=== PATIENT | female | born 1995 | race Caucasian/White ===

== ENCOUNTER 2017-08-06 14:16 | Emergency (ER) | payer OTHER ==
[2017-08-06 14:19] VITALS: BP 143/83; BMI 26.6
[2017-08-06 15:18] LABS: BILIRUBIN,URINE NEGATIVE (NEGATIVE); BLOOD/HEMOGLOBIN,URINE NEGATIVE (NEGATIVE); GLUCOSE, URINE NEGATIVE (NEGATIVE); KETONES,URINE NEGATIVE (NEGATIVE); LEUKOCYTE ESTERASE ,URINE 1+ (NEGATIVE); NITRITES,URINE NEGATIVE (NEGATIVE); PROTEIN,URINE NEGATIVE (NEGATIVE); UROBILINOGEN,URINE NORMAL (NORMAL)
[2017-08-06 15:40] LABS: APPEARANCE,URINE CLEAR (CLEAR); COLOR,URINE YELLOW (YELLOW)
[2017-08-06 15:43] LABS: RBC,URINE RARE /HPF (NEGATIVE)
[2017-08-06 15:44] LABS: AMORPHOUS SEDIMENT,UR TRACE /HPF (NEGATIVE); BACTERIA,URINE TRACE /HPF (NEGATIVE); MUCUS,URINE MODERATE /HPF (NEGATIVE); SQUAMOUS EPITHELIAL CELL,UR FEW /HPF (NEGATIVE)
[2017-08-06] MEDS ORDERED: TYLENOL 500 MG TAB EXTRA STRENGTH PO STA (15:50)
[2017-08-06] MEDS ORDERED: TYLENOL 500 MG TAB EXTRA STRENGTH PO ONE (15:55)
--- NOTE | 2017-08-06 15:56 | DR.GENAD ---
HPI - PCP Primary Care Physician: JOHN - Complaint/Symptoms Chief Complaint Doctors Comments: patient is complaining of left lower back and left lower abdominal pain for the past three weeks with lower abdominal pain the past 2-3 days getting worst. States she has talked to Dr. Lopez about her back pain but she did not tell her to take anything for he pain. States she has not taken any tylenol or anything because she is afraid to take any medicines. States she is eight weeks and this is her second and she has a boy one year old. She denies hematuria, vaginal bleeding or discharge. States they recently did a sonogram at the doctor's office and they baby was doing fine and they could hear the heart beat at 8 weeks. She denies fever, chills, cold or cough. She denies any recent trauma. Chief Complaint:: PATIENT STATED THAT HER LEFT SIDE AND LOWER BACK HAS BEEN HURTING TODAY ON THE SIDE AND 3 WEEKS ON THE BACK. PATIENT IS A 8 WEEK OB. - Nurses notes reviewed Nurses Notes Review: Yes - Source History Provided: Patient - Mode of Arrival Mode of Arrival: Ambulatory - Timing Onset of Chief Complaint: 08/03/17 Came on: Gradually - Duration Duration: Intermittent How lon Duration: Weeks - Location Location: left lower back pain - Severity Severity: Moderate - Modifying Factors Worsens:: nothing Improves:: nothing PMH - PMH Past Medical History: No Past Surgical History: No - Family History History of Family Medical Conditions: No (UNKNOWN) - Social History Does patient currently use any type of tobacco product: No Have you used tobacco products in the last 12 months: No Type of Tobacco Use: None Does any household member use tobacco: No Alcohol Use: None Do you use any recreational Drugs:: No Lives With: Family Lives Where: Home - infectious screening In the last 2 months have you had wt loss of >10#?: NO Have you had fever, night sweats or hemotysis?: No Have you traveled outside the country in the last 6 months?: No Isolation: Standard ROS - Review of Systems Constitutional: No Symptoms Reported. negative: See HPI, Chills, Diaphoresis, Fever, Malaise, Weakness, Irritable, Fatigue, Loss of Appetite, Other Eyes: No Symptoms Reported ENTM: No Symptoms Reported. negative: See HPI, Ear Pain, Ear Discharge, Pulling on Ears, Hearing Loss, Nose Pain, Nose Discharge, Epistaxis, Nose Congestion, Mouth Pain, Mouth Swelling, Loose Teeth, Drooling, Throat Pain, Throat Swelling, Ear Foreign Body Respiratoy: No Symptoms Reported Cardiovascular: No Symptoms Reported. negative: See HPI, Chest Pain, Edema, Palpitations, Syncope, Cyanosis, Skin Mottling, Other Gastrointestinal/Abdominal: No Symptoms Reported. negative: See HPI, Abdominal Pain, Constipation, Diarrhea, Nausea, Vomiting, Food Intolerance, Other Genitourinary: No Symptoms Reported. negative: See HPI, Discharge, Dysuria, Frequency, Hematuria, Pain, Bleeding, Other Neurological: No Symptoms Reported Musculoskeletal: No Symptoms Reported Integumentary: No Symptoms Reported Hematologic/Lymphatic: No Symptoms Reported Endocrine: No Symptoms Reported Psychiatric: No Symptoms Reported. negative: See HPI, Anxiety, Depression, Hallucinations, Excessive crying, Suicidal, Other PE - Vital Signs Vitals: Temperature 98.7 F Pulse Rate 86 Respiratory Rate 20 Blood Pressure 143/83 O2 Sat by Pulse Oximetry 99 - General Limitations: No Limitations. negative: Language Barrier, Altered Mental Status , Physical Limitation, Other General Appearance: Alert, In No Apparent Distress - Head Head Exam: Normal Inspection, Atraumatic, Normocephalic - Eyes Eye exam: Normal Appearance, PERRL, EOMI. negative: Scleral Icterus, Conjunctival Injection, Nystagmus, Miosis, Mydrasis, Periorbital Swelling, Periorbital Tenderness, Other - ENT ENT Exam: Normal Exam, Normal Oropharynx, Normal External Ear Exam, Mucous Membranes Moist, TM's Normal Bilaterally External Ear Exam: Normal External Inspection TM/Canal Exam: Bilateral Normal Nose Exam: Normal Nose Exam Mouth Exam: Normal Inspection Throat Exam: Normal Inspection - Neck Neck Exam: Normal Inspection, Full ROM, Trachea Midline - Chest Chest Inspection: Normal Inspection, Symmetric Chest Wall Rise - Respiratory Respiratory Exam: Normal Lung Sounds Bilat Respiratory Exam: Bilateral Clear to Auscultation - Cardiovascular Cardiovascular Exam: Regular Rate, Normal Rhythm, Normal Heart Sounds. negative : Bradycardia, Tachycardia, Irregular Rhythm, Systolic Murmur, Diastolic Murmur , Rubs, Gallop, Clicks, JVD, +S1, +S2, +S3, +S4, Other - Abdominal Exam Abdominal Exam: Normal Inspection, Normal Bowel Sounds, Soft. negative: Distention, Tenderness, Guarding, Rebound, Rigidity, Dimnished Bowel Sounds, Hyperactive Bowel Sounds, Hypoactive Bowel Sounds, Organomegaly, Trauma, Incision, Ascites, Mass, Bruit, Pulsatile Mass, Hernia, Other Abdominal Tenderness: negative: RUQ, RLQ, LUQ, LLQ, Epigastrium, Suprapubic, Diffuse, Mild, Moderate, Severe, Other - Extremities Extremities Exam: Normal Inspection, Full ROM, Normal Capillary Refill. negative: Tenderness - Back Back Exam: Normal Inspection, Full ROM, Tenderness (left lower paraspinal tenderness). negative: (R) CVA Tenderness, (L) CVA Tenderness, Muscle Spasm, Paraspinal Tenderness, Vertebral Tenderness, Rashes, (R) Sciatic Notch Tenderness, (L) Sciatic Notch Tendern, (R) Straight Leg Raise, (L) Straight Leg Raise, Other - Neurologic Neurological Exam: Alert, Oriented X3, CN II-XII Intact, Normal Gait, Reflexes Normal - Psychiatric Psychiatric Exam: Normal Affect, Normal Mood - Skin Skin Exam: Warm, Dry, Intact, Normal Color ROR - Labs Reviewed Laboratory Results Reviewed?: Yes (all lab results reviewed and discussed with patient.) Laboratory: Specimen Type Clean catch urine 08/06/17 14:42 Urine Color Yellow (YELLOW) 08/06/17 14:42 Urine Appearance Clear (CLEAR) 08/06/17 14:42 Urine pH 5.0 (5.0 - 8.0) 08/06/17 14:42 Ur Specific [place] 1.015 (1.000-1.030) 08/06/17 14:42 Urine Protein Negative (NEGATIVE) 08/06/17 14:42 Urine Glucose (UA) Negative (NEGATIVE) 08/06/17 14:42 Urine Ketones Negative (NEGATIVE) 08/06/17 14:42 Urine Occult Blood Negative (NEGATIVE) 08/06/17 14:42 Urine Nitrite Negative (NEGATIVE) 08/06/17 14:42 Urine Bilirubin Negative (NEGATIVE) 08/06/17 14:42 Urine Urobilinogen Normal (NORMAL) 08/06/17 14:42 Ur Leukocyte Esterase 1+ (NEGATIVE) 08/06/17 14:42 Urine RBC Rare /HPF (NEGATIVE) 08/06/17 14:42 Urine WBC 0 - 2 /HPF (NEGATIVE) 08/06/17 14:42 Ur Squamous Epith Cells Few /HPF (NEGATIVE) 08/06/17 14:42 Amorphous Sediment Trace /HPF (NEGATIVE) 08/06/17 14:42 Urine Bacteria Trace /HPF (NEGATIVE) 08/06/17 14:42 Urine Mucus Moderate /HPF (NEGATIVE) 08/06/17 14:42 Ur Culture Indicated? No/not indicated 08/06/17 14:42 - Diagnosis Discharge Problem: Low back pain Qualifiers: Chronicity: acute Sciatica presence: without sciatica Lumbar strain Qualifiers: Encounter type: initial encounter Qualified Code(s): S39.012A - Strain of muscle, fascia and tendon of lower back, initial encounter Qualifiers: Weeks of gestation: 8 weeks Qualified Code(s): Z3A.08 - 8 weeks gestation of - Discharge Plan Disposition: 01 HOME, SELF-CARE Condition: Stable - Follow ups/Referrals Follow ups/Referrals: MANDIE LOPEZ [Primary Care Provider] - 3 days - Instructions Instructions: Back Pain, Adult, [id number],
== END 2017-08-06 16:16 | disposition home or self-care (01) ==
LOC: ER 14:16
DX: S39.012A Strain of muscle, fascia and tendon of lower back, initial encounter (principal); M54.5 Low back pain; Z3A.08 8 weeks gestation of pregnancy; Y33.XXXA Other specified events, undetermined intent, initial encounter; Y92.9 Unspecified place or not applicable
CPT/HCPCS: 81001; 99282; 99283

== ENCOUNTER 2019-05-16 06:10 | Inpatient (IN) ==
[2019-05-16] MEDS ORDERED: LR 1000 ML IV 1,000 ML IV ONE (06:35)
[2019-05-16] MEDS ORDERED: D5LR 1L W PITOCIN 10 UNITS/L 10 UNITS/1,000 ML BAG IV ONE (06:35)
[2019-05-16] MEDS ORDERED: D5 1/2 NS 1000 ML 1,000 ML IV ONE (06:36)
[2019-05-16] MEDS: D5 1/2 NS 1000 ML 1,000 ML IV SCH ×2 (06:45→18:40)
[2019-05-16] MEDS ORDERED: BACITRACIN VIAL ONE (06:48)
--- NOTE | 2019-05-16 07:00 | DR.OB ---
OB Quick Note - Assessment/Plan Assessment/Plan: L&D 05/16/19 at 6:50am S-No complaint. O-Afebrile,VSS RZR=180 with good LTV, +accel, no decel. CTX=none CVX=2cm/50%/-1/VTX AROM with clear fluid. IUPC and FSE placed. A-IUP at 39 2/7 weeks for induction Rh- P-Begin pitocin induction Anticipate
[2019-05-16] MEDS ORDERED: D5LR 1L W PITOCIN 10 UNITS/L 10 UNITS/1,000 ML BAG IV PRN (07:14)
[2019-05-16] MEDS ORDERED: REGLAN INJ 10 MG VIAL IVP PRN (07:14)
[2019-05-16] MEDS ORDERED: PHENERGAN INJ 25 MG IM PRN ×2 (07:14→17:08)
[2019-05-16] MEDS ORDERED: PITOCIN IVP ONE (07:14)
[2019-05-16] MEDS ORDERED: MORPHINE SULFATE INJ 2 MG INJ IVP PRN (07:14)
[2019-05-16] MEDS ORDERED: NUBAIN INJ 200 MG VIAL MULTIDOSE IVP PRN (07:14)
[2019-05-16] MEDS ORDERED: AFLURIA II4 or FLUARIX II4 IM ONE (08:02)
[2019-05-16] MEDS ORDERED: NAROPIN EPIDURAL 0.2% + FENTANYL 90MCG 60 ML EPI ONE ×2 (09:16→15:41)
[2019-05-16] MEDS ORDERED: FENTANYL INJ 100 mcg ONE (09:16)
--- NOTE | 2019-05-16 11:38 | DR.OB ---
OB Quick Note - Assessment/Plan Assessment/Plan: L&D 05/16/19 at 11:30am Pitocin=16mu/min. S-No complaint. s/p epidural. O-Afebrile,VSS DUH=978 with good LTV, +accel, no decel. CTX=q 1 1/2 to 3 min., about 35-65mmHg CVX=3cm/50%/-1 A-IUP at 39 2/7 weeks for induction Rh- P-Cont. pitocin induction Anticipate
[2019-05-16] MEDS ORDERED: PITOCIN ONE (12:11)
[2019-05-16] MEDS ORDERED: D5 1/2 NS 1L W PITOCIN 20 UNITS/L 20 UNITS/1,000 ML BAG IV ONE (12:11)
--- NOTE | 2019-05-16 17:07 | DR.OB ---
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 Head delivered over intact perineum. Nose and mouth bulb suctioned. No nuchal cord. Body delivered over intact perineum. Cord clamped x 2 and cut. handed to attendant. Cord sent for gases. Placenta delivered spontaneously / intact / 3 vessel cord. No CVX / vaginal / perineal tears. Viable male , VTX/OA, wt=7'3" and 8/9, stable to NBN. Mother stable to RR. URP=[id number].
[2019-05-16] MEDS ORDERED: MOTRIN TAB 800 MG PO PRN (17:08)
[2019-05-16] MEDS ORDERED: D5 1/2 NS 1000 ML 1,000 ML with PITOCIN 20 UNITS IV SCH ×2 (18:00)
[2019-05-16] MEDS ORDERED: HYPERRHO S/D (or RHOGAM) IM PRN ×2 (18:26→18:46)
[2019-05-16] MEDS ORDERED: MILK OF MAGNESIA PO PRN ×2 (18:26→18:46)
[2019-05-16] MEDS ORDERED: AMBIEN PO PRN ×2 (18:26→18:46)
[2019-05-16] MEDS ORDERED: ADACEL or BOOSTRIX TDaP VACCINE IM ONE (18:26)
[2019-05-16] MEDS ORDERED: DERMOPLAST SPRAY TOP PRN ×2 (18:26→18:46)
[2019-05-16] MEDS ORDERED: ZANTAC PO SCH (21:00)
[2019-05-16] MEDS: ZANTAC PO SCH (21:00)
[2019-05-16] MEDS: MOTRIN TAB 800 MG PO PRN (21:00)
[2019-05-17 05:39] LABS: HEMATOCRIT 30.1 % (36.0-47.0)
[2019-05-17] MEDS ORDERED: HYPERRHO S/D (or RHOGAM) IM ONE (07:21)
[2019-05-17] MEDS: MOTRIN TAB 800 MG PO PRN ×2 (07:25→21:00)
[2019-05-17] MEDS: PRENATAL PLUS PO SCH (08:00)
[2019-05-17] MEDS: ZANTAC PO SCH ×2 (08:00→21:00)
[2019-05-17] MEDS ORDERED: PRENATAL PLUS PO SCH (09:00)
[2019-05-18] MEDS: PRENATAL PLUS PO SCH (09:14)
[2019-05-18] MEDS: ZANTAC PO SCH (09:14)
[2019-05-18 09:16] VITALS: BP 105/69
== END 2019-05-18 11:45 | disposition home or self-care (01) | DRG 807 ==
LOC: LD 06:10 → MED/SURG 18:30
PROVIDERS: ADMIT Specialist; ATTEND Specialist
DX: Z3A.39 39 weeks gestation of pregnancy; Z01.812 Encounter for preprocedural laboratory examination; Z01.818 Encounter for other preprocedural examination; O36.0930 Maternal care for other rhesus isoimmunization, third trimester, not applicable or unspecified; Z37.0 Single live birth
CPT/HCPCS: 36415; 59409; 80048; 80307; 81001; 85014; 85018; 85025; 86592; 86850; 86900; 86901; A4216; A4222; J3490; S0197; G0434; J2590; J3010; J7120; S5010

== ENCOUNTER 2020-11-03 06:24 | Inpatient (IN) ==
[2020-11-03] MEDS ORDERED: PITOCIN ONE (06:34)
[2020-11-03] MEDS ORDERED: D5 1/2 NS 1000 ML 1,000 ML IV ONE (06:35)
[2020-11-03] MEDS ORDERED: D5 1/2 NS 1L W PITOCIN 20 UNITS/L 20 UNITS/1,000 ML BAG IV ONE ×2 (06:35→17:31)
[2020-11-03] MEDS ORDERED: LR 1000 ML IV 1,000 ML IV ONE ×2 (06:35→10:17)
[2020-11-03] MEDS ORDERED: D5LR 1L W PITOCIN 10 UNITS/L 10 UNITS/1,000 ML BAG IV ONE (06:35)
[2020-11-03] MEDS ORDERED: BETADINE SOLN ONE (06:35)
--- NOTE | 2020-11-03 07:05 | DR.OB ---
OB Quick Note - Assessment/Plan Assessment/Plan: L&D 11/03/20 at 7:00am S-No complaint. O-Afebrile,VSS GDR=498 with good LTV, +accel, no decel. CTX=none CVX=2cm/50%/-1/VTX AROM with clear fluid. IUPC and FSE placed. A-IUP at 38 6/7 weeks for induction Oligohydramnios Multiparity Rh- P-Begin pitocin induction Anticipate with PP BTL as desired.
[2020-11-03] MEDS ORDERED: D5 1/2 NS 1000 ML 1,000 ML IV SCH (07:32)
[2020-11-03] MEDS ORDERED: PITOCIN IVP ONE (07:32)
[2020-11-03] MEDS ORDERED: D5LR 1L W PITOCIN 10 UNITS/L 10 UNITS/1,000 ML BAG IV PRN (07:32)
[2020-11-03] MEDS ORDERED: NUBAIN INJ 200 MG VIAL MULTIDOSE IVP PRN (07:32)
[2020-11-03] MEDS ORDERED: REGLAN INJ 10 MG VIAL IVP PRN ×2 (07:32→17:07)
[2020-11-03] MEDS ORDERED: MORPHINE SULFATE INJ 2 MG INJ IVP PRN (07:32)
[2020-11-03] MEDS ORDERED: PHENERGAN INJ 25 MG IM PRN ×3 (07:32→17:07)
[2020-11-03] MEDS ORDERED: STADOL INJ IVP PRN (07:33)
[2020-11-03] MEDS ORDERED: STADOL INJ ONE (09:04)
[2020-11-03] MEDS ORDERED: NAROPIN EPIDURAL 0.2% 100 ML ONE (09:10)
[2020-11-03] MEDS ORDERED: FENTANYL INJ 100 mcg ONE (09:10)
[2020-11-03] MEDS ORDERED: REGLAN INJ 10 MG VIAL ONE (09:49)
--- NOTE | 2020-11-03 12:15 | DR.OB ---
OB Quick Note - Assessment/Plan Assessment/Plan: L&D 11/03/20 at 12:10pm Pitocin=14mu/min. S-No complaint. s/p epidural. O-Afebrile,VSS TTA=492 with good LTV, +accel, no decel. CTX=q 1 1/2 to 3 min., about 45-65mmHg CVX=4cm/75%/0/VTX A-IUP at 38 6/7 weeks for induction Multiparity Rh- Oligohydramnios P-Cont. pitocin induction Anticipate
--- NOTE | 2020-11-03 14:25 | DR.OB ---
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 Head delivered over intact perineum. No nuchal cord. Nose and mouth bulb suctioned. Body delivered over intact perineum. Cord clamped x 2 and cut. handed to attendant. Cord sent for gases. Placenta delivered spontaneously / intact / 3 vessel cord. No CVX / vaginal / perineal tears noted. Viable female , VTX/OA, wt=6'8" and 9/9, stable to NBN. Mother stable to NBN. ENV=[id number].
[2020-11-03] MEDS: D5 1/2 NS 1000 ML 1,000 ML with PITOCIN 20 UNITS IV SCH ×4 (15:04→23:53)
[2020-11-03] MEDS ORDERED: ANCEF 1 GRAM IV PREMIX* 2 G/100 ML BAG IV ONE (15:09)
[2020-11-03] MEDS ORDERED: XYLOCAINE 2 % (PLAIN) ONE (15:12)
[2020-11-03] MEDS ORDERED: VERSED ONE (16:10)
[2020-11-03] MEDS ORDERED: DIPRIVAN VIAL ONE (16:10)
[2020-11-03] MEDS ORDERED: ZOFRAN INJ 4 MG VIAL ONE (16:10)
[2020-11-03] MEDS ORDERED: BENADRYL INJ 50 MG VIAL IVP PRN (17:07)
[2020-11-03] MEDS ORDERED: ZOFRAN INJ 4 MG VIAL IVP PRN (17:07)
[2020-11-03] MEDS ORDERED: DILAUDID INJ ONE (17:14)
[2020-11-03] MEDS: DILAUDID INJ IVP PRN ×2 (17:15→17:27)
[2020-11-03] MEDS ORDERED: MILK OF MAGNESIA PO PRN ×2 (17:34)
[2020-11-03] MEDS ORDERED: DERMOPLAST PAIN RELIEF SPRAY TOP PRN (17:34)
[2020-11-03] MEDS ORDERED: AMBIEN PO PRN ×2 (17:34)
[2020-11-03] MEDS ORDERED: HYPERRHO S/D (or RHOGAM) IM PRN (17:34)
[2020-11-03] MEDS ORDERED: MYLICON TAB 80 MG CHEW PO PRN (17:34)
[2020-11-03] MEDS ORDERED: ADACEL or BOOSTRIX TDaP VACCINE IM ONE (17:34)
[2020-11-03] MEDS: PERCOCET TAB 5/325 MG PO PRN (18:37)
[2020-11-03] MEDS: MOTRIN TAB 800 MG PO PRN (20:04)
[2020-11-04 04:05] LABS: HEMATOCRIT 31.7 % (36.0-47.0)
[2020-11-04] MEDS: MOTRIN TAB 800 MG PO PRN ×2 (04:25→13:56)
[2020-11-04] MEDS: D5 1/2 NS 1000 ML 1,000 ML with PITOCIN 20 UNITS IV SCH ×4 (07:13→15:02)
[2020-11-04] MEDS ORDERED: PRENATAL PLUS PO SCH (09:00)
[2020-11-04] MEDS: PERCOCET TAB 5/325 MG PO PRN ×2 (09:29)
[2020-11-04] MEDS: BACTROBAN TOPICAL OINT TOP SCH ×2 (09:29→14:24)
[2020-11-04 12:47] VITALS: BP 109/67
== END 2020-11-04 17:25 | disposition home or self-care (01) | DRG 768 ==
LOC: LD 06:24 → MED/SURG 16:32
PROVIDERS: ADMIT Specialist; ATTEND Specialist
DX: Z37.0 Single live birth; Z3A.38 38 weeks gestation of pregnancy; Z01.818 Encounter for other preprocedural examination; O36.0930 Maternal care for other rhesus isoimmunization, third trimester, not applicable or unspecified; Z30.2 Encounter for sterilization; O41.03X0 Oligohydramnios, third trimester, not applicable or unspecified

== ENCOUNTER 2025-04-04 08:58 | Observation (INO) ==
[2025-04-04] MEDS ORDERED: MOTRIN TAB 600 MG PO PRN (10:04)
[2025-04-04] MEDS ORDERED: [UNRECOGNIZED DRUG - OTHER] PO SCH (10:15)
[2025-04-04] MEDS ORDERED: NORETHINDRONE AC ETH ESTRADIOL PO SCH (10:15)
[2025-04-04 10:31] LABS: MEAN PLATELET VOLUME 9.9 fL (7.4-11.0); RED CELL DISTRIBUTION WIDTH 14.0 % (11.6-16.5)
[2025-04-04 10:44] LABS: CREATININE 0.45 mg/dL (0.55-1.02); eGFR NON BLACK RACES > 60 (>60)
[2025-04-04] MEDS: ZOFRAN ODT PO SCH (10:54)
[2025-04-04] MEDS: HEMOCYTE PLUS PO SCH (10:54)
[2025-04-04] MEDS: LR 1,000 ML IV 1,000 ML IV ONE (10:58)
[2025-04-04 11:16] VITALS: BMI 37.6
[2025-04-04 11:19] VITALS: RESP 18
[2025-04-04] MEDS: LR 1,000 ML IV 1,000 ML with MVI INJ (ADULT) 10 ML IV ONE (11:56)
[2025-04-04 12:28] VITALS: TEMP 97.6
[2025-04-04] MEDS: NORETHINDRONE AC ETH ESTRADIOL PO SCH (13:16)
[2025-04-04 17:11] VITALS: BP 117/70; PULSE 68; O2SAT 98
[2025-04-04] MEDS ORDERED: LR 1,000 ML IV 1,000 ML IV SCH (19:00)
--- NOTE | 2025-04-05 08:24 | US ---
EXAM: TRANSVAGINAL HISTORY: MENORRHAGIA; LMP 03/14/2025. . COMPARISON: None TECHNIQUE: 84 images made by the development expert. Starr scale and color flow images of the pelvis were obtained. FINDINGS: TRANSVAGINAL The uterus was anteverted in position. It measured 10.8 x 4.9 cm. Well defined anechoic structures in the lower uterine segment are probably Nabothian cysts. The uterine contour is smooth. The myometrium has a uniform echogenicity. There is no nodule or mass to suggest a uterine fibroid. The endometrium is echogenic measuring 14 mm in thickness. Probably secretory phase. Simple cyst in the right adnexa has a daughter cyst within it and measures about 4.2 cm. Likely ovarian in origin. The left ovary in the remaining right ovarian tissue have normal echogenicity and size. Blood flow is demonstrated by color imaging and spectral wave form analysis. No other adnexal mass. No free fluid. IMPRESSION: 1. (4.2 cm) simple cyst right ovary THIS IS AN ELECTRONICALLY VERIFIED FINAL REPORT 04/05/2025 8:21 AM - Electronically signed by Shamar Sanon MD
[2025-04-05] MEDS ORDERED: ZOLOFT PO SCH (09:00)
--- NOTE | 2025-04-05 10:33 | W.DIS.FURT ---
Summary of Discharge Discharge Summary of Date Date of Exam: 04/04/25 Admission Date Date of Admission: 04/04/25 Admission Diagnosis Hospital Course: Patient is a 30-year-old 4 para 4 who had been experiencing a heavy menstrual period for the last 3 weeks before presenting to the office. She was tried on an oral contraceptive pill taper and was taking 3 pills a day but stated that her bleeding was only slightly improved if any, and that she still felt horrible. Patient was apparently well enough to go to work, and drive herself to her office appointments. During her hospital stay she received IV fluids, her bleeding was observed and was found to be minimal, at least not the heavy period that she was describing with passing of large clots. She had a pelvic ultrasound performed. Her hemoglobin and hematocrit were 12 and 36, and so no transfusion or other surgical intervention was felt to be necessary. The patient was informed she could continue with the pill taper so as to avoid a withdrawal bleed. Patient said that she preferred to go home and have scheduled follow-up in the office early next week. Vital Signs: Vital Signs (72 hours) 04/04/25 08:12 04/04/25 10:02 04/04/25 10:30 Temperature 97.7 F Pulse Rate [Bilateral Radial] 77 Respiratory Rate 18 Blood Pressure 115/75 Blood Pressure [Left Arm] 126/75 O2 Sat by Pulse Oximetry 98 Oxygen Delivery Method Room Air Room Air 04/04/25 12:00 04/04/25 16:00 Temperature 97.6 F 97.6 F Pulse Rate [Bilateral Radial] 62 68 Respiratory Rate 18 18 Blood Pressure Blood Pressure [Left Arm] 117/69 117/70 O2 Sat by Pulse Oximetry 99 98 Oxygen Delivery Method Room Air Room Air Labs: Laboratory Last Values WBC 6.7 X10^3/uL (3.6-10.0) 04/04/25 10:18 RBC 4.10 X10^6/uL (3.5-5.4) 04/04/25 10:18 Hgb 12.8 g/dL (12.0-16.0) 04/04/25 10:18 Hct 36.2 % (36.0-47.0) 04/04/25 10:18 MCV 88.5 fL (80.0-100.0) 04/04/25 10:18 MCH 31.3 pg (27.0-34.0) 04/04/25 10:18 MCHC 35.4 g/dL (33.0-35.0) H 04/04/25 10:18 RDW 14.0 % (11.6-16.5) 04/04/25 10:18 Plt Count 274 X10^3/uL (150.0-450.0) 04/04/25 10:18 MPV 9.9 fL (7.4-11.0) 04/04/25 10:18 Neut % (Auto) 70.6 % (42.0-75.0) 04/04/25 10:18 Lymph % (Auto) 20.3 % (21.0-51.0) L 04/04/25 10:18 Gove % (Auto) 7.4 % (0.0-13.0) 04/04/25 10:18 Eos % (Auto) 0.9 % (0.9-2.9) 04/04/25 10:18 Baso % (Auto) 0.8 % (0.2-1.0) 04/04/25 10:18 Neut # (Auto) 4.7 x10^3/uL (2.2-4.8) 04/04/25 10:18 Lymph # (Auto) 1.4 X10^3/uL (1.3-2.9) 04/04/25 10:18 Gove # (Auto) 0.5 x10^3/uL (0.3-0.8) 04/04/25 10:18 Eos # (Auto) 0.1 x10^3/uL (0.0-0.2) 04/04/25 10:18 Baso # (Auto) 0.1 X10^3/uL (0.0-0.1) 04/04/25 10:18 Absolute Nucleated RBC 0.0 /100WBC 04/04/25 10:18 Sodium 138 mmol/L (136-145) 04/04/25 10:18 Corrected Sodium TNP 04/04/25 10:18 Potassium 3.9 mmol/L (3.5-5.1) 04/04/25 10:18 Chloride 105 mmol/L (98-107) 04/04/25 10:18 Carbon Dioxide 27.0 mmol/L (21-32) 04/04/25 10:18 BUN 10 mg/dL (7-18) 04/04/25 10:18 Creatinine 0.45 mg/dL (0.55-1.02) L 04/04/25 10:18 Est GFR (MDRD) Af Amer > 60 (>60) 04/04/25 10:18 Est GFR (MDRD) Non-Af > 60 (>60) 04/04/25 10:18 Glucose 94 mg/dL (65-99) 04/04/25 10:18 Calcium 8.7 mg/dL (8.5-10.1) 04/04/25 10:18 Corrected Calcium TNP 04/04/25 10:18 Total Bilirubin 0.70 mg/dL (0.2-1.0) 04/04/25 10:18 AST 15 Units/L (15-37) 04/04/25 10:18 ALT 28 Units/L (12-78) 04/04/25 10:18 Alkaline Phosphatase 79 Units/L (46-116) 04/04/25 10:18 Total Protein 7.6 g/dL (6.4-8.2) 04/04/25 10:18 Albumin 4.2 g/dL (3.4-5.0) 04/04/25 10:18 Globulin 3.4 g/dL (2.5-4.5) 04/04/25 10:18 Albumin/Globulin Ratio 1.2 Ratio (1.1-2.1) 04/04/25 10:18 Blood Type O NEGATIVE 04/04/25 10:18 Antibody Screen Negative 04/04/25 10:18 Reason For Visit: MENORRHAGIA Discharge Date Discharge Date: 04/04/25 Discharge Diagnosis All Active Problems (Updated 04/01/25 @ 13:51 by Kaila Adams MD) Status post tubal ligation (Acute) Class 2 obesity with body mass index (BMI) of 37.0 to 37.9 in adult (Acute) Oligohydramnios (Acute) Vaginal delivery (Acute) Third trimester (Acute) Vaginal delivery (Acute) Luiz Gavin contractions (Acute) Vaginal delivery (Acute) Low back pain (Acute) Lumbar strain (Acute) (Acute) Plan of Treatment: Continue with present treatment and follow up plan. Pt is to keep follow up appointment as instructed and take medications as ordered. Discharge Medications Discharge Medications: No Known Drug Allergies Allergy (Verified 04/04/25 08:12) Discharge Plan Discharge Plan Hospital Course: Patient is a 30-year-old 4 para 4 who had been experiencing a heavy menstrual period for the last 3 weeks before presenting to the office. She was tried on an oral contraceptive pill taper and was taking 3 pills a day but stated that her bleeding was only slightly improved if any, and that she still felt horrible. Patient was apparently well enough to go to work, and drive herself to her office appointments. During her hospital stay she received IV fluids, her bleeding was observed and was found to be minimal, at least not the heavy period that she was describing with passing of large clots. She had a pelvic ultrasound performed. Her hemoglobin and hematocrit were 12 and 36, and so no transfusion or other surgical intervention was felt to be necessary. The patient was informed she could continue with the pill taper so as to avoid a withdrawal bleed. Patient said that she preferred to go home and have scheduled follow-up in the office early next week. Patient Disposition: 01 HOME, SELF-CARE Condition: Stable Health Concerns: Post Hospitalization: new medications and changes needed to prevent readmission or further decline. Pt educated and given instructions on all concerns. Care Plan Goals: Problem: Pain/Alteration in Comfort Goal: Improve/ Resolve Pain; Achieve Pain Tolerance Instructions: Take pain medications as prescribed. Contact your primary care provider if your pain is unrelieved or worsens. Follow up with primary care provider as directed. Plan of Treatment: Continue with present treatment and follow up plan. Pt is to keep follow up appointment as instructed and take medications as ordered. Prescriptions: Continued norethindrone ac-eth estradiol [Loestrin .01/25 (21)] 1.5-30 mg-mcg tablet 1 tab PO ONCE Qty: 42 0RF Rx Instructions: Pill taper: take pills 3x (morning, noon, night) per day x 7 days, then 2x per day x 7 days, then 1x per day (total of 42 pills) ondansetron 4 mg tablet,disintegrating 4 mg PO Q8H Qty: 30 0RF Rx Instructions: Take PRN nausea Orders to Discharge Patient Discharge Orders: Discharge (Routine); Ordered 04/04/25 Ordered By: Kaila Adams Follow ups/Referrals Follow ups/Referrals: Kaila Adams MD [STAFF PHYSICIAN, [facility]/Gynecology] - 04/10/25 1:00 pm Instructions Instructions: Abnormal Uterine Bleeding, [id number], Dizziness Activity Restrictions/Additional Instructions: Keep a count of the number of pads that you change. Continue home medications as prescribed. If symptoms worsen return to the emergency room. Call and schedule a follow up appointment for Tuesday. Stand Alone Forms: Excuse From Work or School, Find Help Web Site, Post Hospital Follow Up Care Print Language: SYRIAC
== END 2025-04-04 17:40 | disposition home or self-care (01) ==
LOC: MED/SURG
PROVIDERS: ADMIT Obstetrics & Gynecology; ATTEND Obstetrics & Gynecology
DX: Z72.0 Tobacco use; R42 Dizziness and giddiness; Z98.51 Tubal ligation status; N92.0 Excessive and frequent menstruation with regular cycle; N83.291 Other ovarian cyst, right side